=== PATIENT | female | born 1935 | race Caucasian/White ===

== ENCOUNTER 2018-12-20 09:15 | Emergency (ER) | payer MEDICARE ==
[~2018-12-20] VITALS: Ht 157.5 cm; Wt 55.8 kg
[2018-12-20] MEDS ORDERED: LEVOTHYROXINE50 MCG (09:51)
[2018-12-20] MEDS ORDERED: FOLIC ACID1 MG (09:51)
[2018-12-20] MEDS ORDERED: ASPIR 8181 MG PO (09:51)
--- NOTE | 2018-12-20 10:51 | Diagnostic Imaging Report ---
EXAMINATION: CHEST 2 VIEWS INDICATION: Coughing up blood COMPARISON: None FINDINGS: TUBES and LINES: None. LUNGS: Lungs are mildly hyperinflated bilaterally. Bibasilar subsegmental atelectasis. There is no evidence of pneumonia or pulmonary edema. PLEURA: No pneumothorax. Bilateral trace pleural effusion. HEART AND MEDIASTINUM: The cardiomediastinal silhouette is unremarkable. Calcifications of the aortic arch. BONES AND SOFT TISSUES: No acute osseous lesion. Mild dextroscoliosis of the lower lobe thoracic spine. UPPER ABDOMEN: No free air under the diaphragm. IMPRESSION: 1. Findings suggestive of COPD. 2. Bilateral trace pleural effusions versus pleural scarring. No focal consolidation. Signed by: Dr. Watson Gambino M.D. on 12/20/2018 10:48 AM
[2018-12-20 12:11] VITALS: BP 217/93
== END 2018-12-20 12:09 | disposition home or self-care (01) ==
LOC: ER 09:15
DX: R05 Cough (principal); R04.2 Hemoptysis; J20.9 Acute bronchitis, unspecified; F17.210 Nicotine dependence, cigarettes, uncomplicated
CPT/HCPCS: 71046; 99283

== ENCOUNTER 2019-07-10 16:50 | Emergency (ER) | payer MEDICARE ==
[~2019-07-10] VITALS: Ht 157.5 cm; Wt 55.8 kg
[~2019-07-10 16:50] MED LIST: ASPIR 8181 MG PO; FOLIC ACID1 MG; LEVOTHYROXINE50 MCG
--- OUTSIDE RECORDS SUMMARY | 2019-07-10 16:52 | XMS REPORT ---
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 Allergies, Adverse Reactions, Alerts This patient has no known allergies or adverse reactions. Medications This patient has no known medications. Results Test Description Test Time Test Comments Text Results Atomic Results Result Comments CHEST 2 VIEWS 2018-12-20 10:44:00 [place] [address] Patient Name: SETH CAVANAUGH MR #: [id number] : 1935 Age/Sex: 83/F Req #: [id number] Adm Physician: Ordered by: HEMANTH WESTFALL MD Report #: [id number] Location: ER Room/Bed: Procedure: [id number] DX/CHEST 2 VIEWS Exam Date: Exam Time: REPORT STATUS: Signed EXAMINATION: CHEST 2 VIEWS INDICATION: Coughing up blood CO MPARISON: None FINDINGS: TUBES and LINES: None. LUNGS: Lungs are mildly hyperinflated bilaterally. Bibasilar subsegmental atelectasis. There is no evidence of pneumonia or pulmonary edema. PLEURA: No pneumothorax. Bilateral trace pleural effusion. HEART AND MEDIASTINUM: The cardiomediastinal silhouette is unremarkable. Calcifications of the aortic arch. BONES AND SOFT TISSUES: No acute osseous lesion. Mild dextroscoliosis of the lower lobe thoracic spine. UPPER ABDOMEN: No free air under the diaphragm. IMPRESSION: 1. Findings suggestive of COPD. 2. Bilateral trace pleural effusions versus pleural scarring. No focal consolidation. Signed by: Dr. Watson Gambino M.D. on 12/20/2018 10:48 AM Dictated By: SAMEERA GAMBINO MD, MD [id number] Transcribed By: VENTURA on 12/20/18 1048 COPY TO: HEMANTH WESTFALL MD
--- OUTSIDE RECORDS SUMMARY | 2019-07-10 16:52 | XMS REPORT | Continuity of Care Document ---
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 Role Phone [facility] [employer] Unavailable Unavailable Problems No Data Provided for This Section Medications Medication Details Route Status Patient Instructions Ordering Provider Order Date Source Aspirin (Aspir 81) 81 Mg Tablet.dr Portillo Active [facility] Folic Acid 1 Mg Tablet Active [facility] Levothyroxine Sodium 50 Mcg Tablet Active [facility] Allergies, Adverse Reactions, Alerts Substance Category Reaction Severity Reaction type Status Date Reported Comments Source Penicillin Severe Allergy to Substance Active 12/09/2013 [facility] Metronidazole Severe Allergy to Substance Active 12/09/2013 [facility] ciprofloxacin HCl Unknown Allergy to Substance Active 12/20/2018 [facility] Codeine Unknown Allergy to Substance Active 12/20/2018 [facility] Clindamycin Unknown Allergy to Substance Active 12/20/2018 [facility] Ciprofloxacin Unknown Allergy to Substance Active 12/20/2018 [facility] Immunizations No Data Provided for This Section Results No Data Provided for This Section Pathology Reports No Data Provided for This Section Diagnostic Reports No Data Provided for This Section Consultation Notes No Data Provided for This Section Discharge Summaries No Data Provided for This Section History and Physicals No Data Provided for This Section Vital Signs No Data Provided for This Section Encounters Location Location Details Encounter Type Encounter Number Reason For Visit Attending Provider ADM Date DC Date Status Source Departed Emergency Room [id number] HEMANTH WESTFALL MD 12/20/2018 12/20/2018 [facility] Procedures Procedure Code Date Perfomer Comments Source X-ray of chest, two views [id number] 12/20/2018 [facility] Assessment and Plan No Data Provided for This Section Plan of Care Plan of Care Date Source Discharge Date 12/20/18 12:09pm Disposition HOME, SELF-CARE Condition at Discharge Stable Instructions/Education Provided Bronchitis (Acute) - Adult Hemoptysis Forms Provided Work/School Excuse Prescriptions See Medication Section Referrals NATHANIEL LA MD Order Date: Call for an appointment Address: [address] [place] [address] Additional Instructions/Education Your diagnosis today is Acute Bronchitis and Minor Hemoptysis. Take the Doxycycline, Medrol dose pack, Tessalon perrlea and ProAire inhaler as prescribed. Follow up with your pcp tomorrow. (12/22/18) May return to ER for any worsening symptoms. 12/20/2018 [facility] Social History Social History Date Source Smoking Status Start Date Stop Date Current every day smoker 12/20/2018 [facility] Family History No Data Provided for This Section Advance Directives Order Name Results Value Date Source Advance Directives Advance Directives Directive Response Recorded Date/Time Does the patient have an advance directive? No 12/09/13 12:03pm Do you have a Directive to Physician? No 12/20/18 10:36am Do you have a Medical Power of Electro Mechanical Designer? No 12/20/18 10:36am Do you have an out of hospital Do Not Resuscitate Order? No 12/20/18 10:36am Do you have any special needs we should be aware of? No 12/20/18 10:36am Do you have a support person here with you today? Yes 12/20/18 10:36am Did patient receive Notice of Privacy Practices? Yes 12/20/18 10:36am Did patient receive patient rights and responsibilities? Yes 12/20/18 10:36am 12/20/2018 [facility] Functional Status No Data Provided for This Section
[2019-07-10] MEDS ORDERED: HYDRALAZINE HCL 20 MG/ML VIAL IV STA (17:36)
[2019-07-10] MEDS ORDERED: ASPIRIN 81 MG CHEW TAB PO ONE (17:45)
--- NOTE | 2019-07-10 18:28 | Diagnostic Imaging Report ---
CT BRAIN WO HISTORY: Dizziness, headache COMPARISON: Head CT 12/09/2013 Technique: Noncontrast axial scans were obtained from skull base to the vertex. Coronal and sagittal reconstructions obtained from the axial data. One or more of the following dose reduction techniques were used: Automated exposure control, adjustment of the mA and/or kV according to patient size, and/or utilization of iterative reconstruction technique. DISCUSSION: Scalp/Skull: Unremarkable. Brain sulci: Mildly prominent. Ventricles: Compensatory dilatation. Extra-axial spaces: No masses or fluid collections. Carotid siphon calcifications are present. Parenchyma: Moderate to severe bilateral deep white matter hypodensity is likely chronic microvascular ischemic change. Otherwise, no masses, hemorrhage, or large vascular territory acute infarct. Dural sinuses: No abnormal densities. Sellar/Suprasellar region: Intact. Skull base: Intact. Incidental findings: None. IMPRESSION: 1. No acute intracranial abnormalities. 2. Moderate to severe supratentorial chronic microvascular ischemic change. Generalized cerebral volume loss. Signed by: Dr. Ted Corona M.D. on 07/10/2019 6:25 PM
[2019-07-10 18:45] LABS: BASOPHILS # (AUTO) 0.1 (0.0-0.1); EOSINOPHILS # (AUTO) 0.2 (0.0-0.4); EOSINOPHILS % 1.9 % (0.0-6.0); HEMATOCRIT 44.7 % (34.2-44.1); HEMOGLOBIN 16.1 g/dL (12.0-16.0); LYMPHOCYTES % 32.3 % (18.0-39.1); MEAN CORPUSCULAR HEMOGLOBIN 31.7 pg (28-32); MONOCYTES # (AUTO) 0.8 (0.2-0.8); MONOCYTES % 8.9 % (4.4-11.3); NEUTROPHILS # (AUTO) 5.1 (2.1-6.9); NEUTROPHILS % 55.4 % (38.7-80.0); PLATELET COUNT 284 x10e3/uL (140-360); RED BLOOD COUNT 5.08 x10e6/uL (3.6-5.1); RED CELL DISTRIBUTION WIDTH 13.6 % (11.7-14.4)
--- NOTE | 2019-07-10 18:52 | Diagnostic Imaging Report ---
EXAMINATION: CHEST SINGLE (PORTABLE) INDICATION: Pain. COMPARISON: 12/20/2018. FINDINGS: TUBES and LINES: None. LUNGS: Lungs are mildly hyperinflated bilaterally. Bibasilar subsegmental atelectasis. There is no evidence of pneumonia or pulmonary edema. PLEURA: No pneumothorax. Bilateral trace pleural effusion. HEART AND MEDIASTINUM: The cardiomediastinal silhouette is unremarkable. Calcifications of the aortic arch. BONES AND SOFT TISSUES: No acute osseous lesion. Mild dextroscoliosis of the lower lobe thoracic spine. UPPER ABDOMEN: No free air under the diaphragm. IMPRESSION: 1. No acute thoracic abnormal. Probable COPD. 2. Bilateral trace pleural effusions versus pleural scarring. No focal consolidation. Signed by: Dr. Watson Gambino M.D. on 07/10/2019 6:48 PM
[2019-07-10 18:53] LABS: INR 0.87; PARTIAL THROMBOPLASTIN TIME 30.9 seconds (23.8-35.5); PROTHROMBIN TIME 12.3 seconds (11.9-14.5)
[2019-07-10 19:02] LABS: BILIRUBIN,URINE NEGATIVE (NEGATIVE); CLARITY,URINE SL CLOUDY (CLEAR); COLOR,URINE YELLOW (YELLOW); KETONES,URINE NEGATIVE (NEGATIVE); LEUKOCYTE ESTERASE ,URINE TRACE (NEGATIVE); NITRITE,URINE NEGATIVE (NEGATIVE); PROTEIN,URINE DIPSTICK NEGATIVE (NEGATIVE); URINE UROBILINOGEN 0.2 mg/dL (0.2 - 1)
[2019-07-10 19:02] LABS: ALANINE AMINOTRANSFERASE 19 IU/L (0-55); ALBUMIN 3.9 g/dL (3.5-5.0); ALBUMIN/GLOBULIN RATIO 1.3 (0.8-2.0); ALKALINE PHOSPHATASE 78 IU/L (40-150); ANION GAP 13.2 mmol/L (8-16); BLOOD UREA NITROGEN 11 mg/dL (7-26); BUN/CREATININE RATIO 14 (6-25); CALCIUM 9.3 mg/dL (8.4-10.2); CARBON DIOXIDE 24 mmol/L (22-29); CHLORIDE 91 mmol/L (98-107); CREATINE KINASE 235 IU/L (29-168); CREATININE, SERUM 0.76 mg/dL (0.57-1.11); EST GLOMERULAR FILTRATION RATE > 60 ML/MIN (60-); GLUCOSE 88 mg/dL (74-118); POTASSIUM 4.2 mmol/L (3.5-5.1); SODIUM 124 mmol/L (136-145)
[2019-07-10 19:14] LABS: EPITHELIAL CELLS,URINE FEW /LPF; RENAL EPITHELIAL CELLS,URINE RARE; WBC,URINE (MAN) 0-5 /HPF (0-5)
[2019-07-10 19:15] LABS: HYALINE CASTS 0-1 (0-1)
[2019-07-10 20:13] VITALS: BP 162/66
== END 2019-07-10 20:23 | disposition home or self-care (01) ==
LOC: ER 16:50
DX: R51 Headache (principal); I10 Essential (primary) hypertension; E03.9 Hypothyroidism, unspecified; Z85.828 Personal history of other malignant neoplasm of skin
CPT/HCPCS: 36415; 70450; 71045; 80053; 81001; 82550; 82553; 83880; 84484; 85025; 85610; 85730; 87086; 93005; 99284; J0360